=== PATIENT | female | born 1990 | race Caucasian/White ===

== ENCOUNTER 2018-01-03 17:55 | Outpatient (REF) | payer MEDICAID, SELFPAY | END 2018-01-03 18:15 | LOC: LBN 17:55 | PROVIDERS: PCP Family Medicine; Visit Provider Obstetrics & Gynecology Gynecology | DX: R39.9 Unspecified symptoms and signs involving the genitourinary system (principal) | CPT/HCPCS: 87086 ==

== ENCOUNTER 2020-10-25 13:30 | Outpatient (CLI) | payer MEDICAID, SELFPAY ==
--- NOTE | 2020-10-25 11:15 | DI.RAD_ITS ---
Exam(s) XR HAND RT COMPLETE EXAM: XR HAND RT COMPLETE CLINICAL HISTORY: nodules in hand. TECHNIQUE: 2D digital imaging was performed. COMPARISON: No exams were available for comparison FINDINGS: There is no evidence of fracture or dislocation. No radiopaque foreign body. No osseous lesions nor erosions. Incidentally noted is a benign bone island base of the distal phalanx of the 4th-ring fin robert. IMPRESSION: DATA REPOSITORY: RADIATION DOSE DELIVERED:
== END 2020-10-25 13:31 | disposition home or self-care (01) ==
LOC: DIORS 13:30
PROVIDERS: Visit Provider Physician Assistant Surgical
DX: M67.441 Ganglion, right hand (principal)
CPT/HCPCS: 73130

== ENCOUNTER 2020-11-09 08:45 | Day surgery (SDC) | payer MEDICAID, SELFPAY ==
--- NOTE | 2020-11-09 07:50 | PDOC.DSDIS_ITS ---
Documented by User: EMMA Herron 11/09/20 07:52 Discharge Plan Disposition Patient Disposition: HOME Condition: Good Discharge Details Reason For Visit: Ganglion Cyst Excision Attending Provider: Saturnino Gutiérrez Primary Care Provider: Jose Simpson Home Meds and New Rx's Prescriptions: New hydrocodone-acetaminophen 5-325 mg tablet 1 tab PO Q6H PRNQty: 5 RF: 0 acetaminophen [Tylenol Extra Strength] 500 mg tablet 500 mg PO Q6H PRNQty: 15 RF: 0 ibuprofen 600 mg tablet 600 mg PO TID Qty: 15 RF: 0 No Action No Known Home Meds RF: 0 Discharge Instructions Additional Instructions: Discharge Instructions Activity: You may use your fingers for light activity. You should limit any excessive motion or forceful gripping until the sutures have been removed. Dressings: You should keep the initial surgical dressing in place for at least 2 days. You may remove your dressings and get the wound wet after 2 days. You should keep the dressings and the wound clean at all times. You may keep the initial dressing in place until your follow-up but keep the wound covered with light gauze until the sutures are removed. Medications: - You should take Tylenol and Ibuprofen around the clock as prescribed or per injection molding machine offbearer's recommendations. - You have Hydrocodone prescribed for breakthrough pain control. Take only as needed and limit use as much as possible. This may cause constipation. Follow-up: 7-10 days for wound check and suture removal. Referrals: Saturnino Gutiérrez MD [ [facility] STAFF PHYSICIAN] - Activity:: Activity as Tolerated Remove Dressings/Wound Care:: 72 hours Shower/Bathe:: 72 hours Diet:: As Tolerated Discharge Orders Discharge Orders: Discharge Order (Routine); Ordered 11/09/20 Ordered By: Nuria Ribeiro DS: Diagnosis Discharge Diagnosis (1) Ganglion cyst of tendon sheath of right hand: Status: Acute Documented by User: Saturnino Gutiérrez MD 11/09/20 09:35 Discharge Plan Disposition Patient Disposition: HOME Condition: Good Discharge Details Reason For Visit: Ganglion Cyst Excision Attending Provider: Saturnino Gutiérrez Primary Care Provider: Jose Simpson Home Meds and New Rx's Prescriptions: New hydrocodone-acetaminophen 5-325 mg tablet 1 tab PO Q6H PRNQty: 5 RF: 0 acetaminophen [Tylenol Extra Strength] 500 mg tablet 500 mg PO Q6H PRNQty: 15 RF: 0 ibuprofen 600 mg tablet 600 mg PO TID Qty: 15 RF: 0 No Action No Known Home Meds RF: 0 Discharge Instructions Additional Instructions: Discharge Instructions Activity: You may use your fingers for light activity. You should limit any excessive motion or forceful gripping until the sutures have been removed. Dressings: You should keep the initial surgical dressing in place for at least 2 days. You may remove your dressings and get the wound wet after 2 days. You should keep the dressings and the wound clean at all times. You may keep the initial dressing in place until your follow-up but keep the wound covered with light gauze until the sutures are removed. Medications: - You should take Tylenol and Ibuprofen around the clock as prescribed or per injection molding machine offbearer's recommendations. - You have Hydrocodone prescribed for breakthrough pain control. Take only as needed and limit use as much as possible. This may cause constipation. Follow-up: 7-10 days for wound check and suture removal. Referrals: Saturnino Gutiérrez MD [ [facility] STAFF PHYSICIAN] - Activity:: Activity as Tolerated Remove Dressings/Wound Care:: 72 hours Shower/Bathe:: 72 hours Diet:: As Tolerated Discharge Orders Discharge Orders: Discharge Order (Routine); Ordered 11/09/20 Ordered By: Nuria Ribeiro
[2020-11-09 09:07] VITALS: BP 126/78; PULSE 78; RESP 18; TEMP 36.4; O2SAT 100
[2020-11-09 09:36] VITALS: BP 117/71; PULSE 76; RESP 16; TEMP 36.7; O2SAT 96
[2020-11-09] MEDS: Sodium Bicarbonate 50 MEQ/50 ML VIAL (09:43)
--- NOTE | 2020-11-09 12:48 | ROE_ITS ---
Date of service: 11/09/20 Time of Service: 10:01 Operative Note Operative Note DATE OF PROCEDURE: 11/09/20 PRE-OP DIAGNOSIS: Right Ring Finger Ganglion Cyst POST-OP DIAGNOSIS: same PROCEDURE: Excision of Tendon Sheath Ganglion Cyst - Right Ring Finger SURGEON: Saturnino Gutiérrez ANESTHESIA TYPE: Local By Surgeon Refer to Anesthesia Record ESTIMATED BLOOD LOSS: 0 PATHOLOGY: none sent TOURNIQUET TIME: 0 COMPLICATIONS: None Patient was transported to: same day Patient's condition: stable Indications: I have seen Karen in clinic for symptoms of a ganglion cyst of the flexor tendon sheath of the right ring finger. The pain limited function. The diagnosis of tendon sheath ganglion cyst was evident. The symptoms had not responded to conservative measures. I discussed excision with the patient. I reviewed the risks of the procedure to include, but not limited to, bleeding, infection, pain, stiffness, damage to nerves or vessels, recurrence. Despite these risks, the patient elected to proceed. Findings: There was a ganglion cyst arising from the flexor tendon sheath just distal to the A1 eleuterio. It measured approximately 12mm (Proximal-Distal) x 6mm (Med-Lat). . Procedure Description: Karen was greeted in the preoperative holding area where the correct side was identified and marked. The consent was reviewed with the patient and signed. All questions were answered. She was taken back to the operating room. The patient was placed into the supine position on the operating room table with the right arm on an arm board. All bony prominences were well padded. No prophylactic antibiotics were admin istered since this was a clean, elective hand surgical case. The right arm was then prepped with Chloraprep and draped in a standard fashion with stockinette and extremity drape. A timeout to confirm correct identity, side and site, procedure, allergies, anesthesia, and medical concerns was performed. The surgical site was marked as a longitudinal incision directly over the cyst of the ring finger. This was confirmed with palpation. This area was then anesthetized with 1% Lidocaine. The patient tolerated this well and once the anesthetic had setup, the procedure began. A longitudinal incision was made through skin only, approximately 1cm. The deep tissues were dissected bluntly. The soft tissue including neurovascular structures were retracted medially and laterally. A small veil of palmar fascia was released to exposed the ganglion cyst. It was normal in appearance with a thin, clear wall. Once exposed it measured approximately 12x8mm. The periphery of the cyst was then dissected such that was free. The cyst was then deflated and normal thickened cystic fluid was removed. The cyst itself was transected off of the flexor tendon sheath leaving a small hole in the underlying flexor tendon sheath. The wound was then irrigated and the skin was closed with a 4-0 Nylon. This was dressed with gauze and a Conform dressing. The patient tolerated the procedure well and was returned to the Same Day Surgery area in a stable condition suffering no known complication.
== END 2020-11-09 10:25 | disposition home or self-care (01) ==
LOC: SUR 08:46
PROVIDERS: PCP Family Medicine; Visit Provider Student in an Organized Health Care Education/Training Program
PROC: (CPT 26160; principal; 2020-11-09 11:15)
DX: M67.441 Ganglion, right hand (principal)
CPT/HCPCS: 26160

== ENCOUNTER 2023-06-26 16:27 | Outpatient (REF) | payer MEDICAID, SELFPAY | END 2023-06-26 16:28 | disposition home or self-care (01) | LOC: LBN 16:27 | PROVIDERS: Visit Provider Advanced Practice Midwife | DX: N90.7 Vulvar cyst (principal); N75.0 Cyst of Bartholin's gland | CPT/HCPCS: 87480; 87510; 87660 ==

== ENCOUNTER 2023-09-26 15:53 | Outpatient (REF) | payer MEDICAID, SELFPAY ==
--- NOTE | 2023-09-26 15:45 | PAPFT_PTH ---
PATIENT: Karen Douglas LOC: [facility] U#:[id number] AGE/SX: 33/F ROOM: RE09/26/[address]: Alexa Prajapati NP : 1990 BED: DIS: 09/26/2023 SPEC #: [id number] RECD: 09/26/23 17:33 STATUS: ARNALDO REQ #: [id number] KENNETH: 09/26/23 15:[address]: Victorina FLORES,Alexa DEPT: [facility] Cytology RECD BY: Reina Hawkins ENTERED: 09/26/23 17:34 SP TYPE: PAPFT OTHR DR: Unknown,Unknown Tissues: 1 - CX/ENDOCX FOR PAP SMEARS Procedures: PAP THIN PREP/[facility] Screening HPV DNA PROBE Comments: [id number] (HPV 16 & 18/45)
== END 2023-09-26 15:54 | disposition home or self-care (01) ==
LOC: LBN 15:53
PROVIDERS: Visit Provider Nurse Practitioner Women's Health
DX: Z12.4 Encounter for screening for malignant neoplasm of cervix (principal); Z01.419 Encounter for gynecological examination (general) (routine) without abnormal findings
CPT/HCPCS: 88142; 87624

== ENCOUNTER 2024-12-03 01:11 | Outpatient (CLI) | payer MEDICAID, SELFPAY ==
--- NOTE | 2024-12-03 08:45 | DI.US_ITS ---
Exam(s) US PELVIS TRANSVAGINAL EXAM: US PELVIS TRANSVAGINAL CLINICAL HISTORY: R pelvic pain,R10.2. TECHNIQUE: Transabdominal and transvaginal pelvic ultrasound was performed using standard protocol. COMPARISON: US PELVIS TRANSVAG from 03/05/2017 FINDINGS: UTERUS: Position: Anteverted. Size: 7.5 long by 2.9 AP by 5.0 transverse cm Endometrium: 0.7 cm. Normal for patient's menstrual status. Myometrium: Unremarkable. Cervix: Unremarkable. OVARIES: Right: 3.1 x 1.5 x 2.7 cm Cyst or mass: No suspicious cystic or solid masses. Left: 3.2 x 1.6 x 2.8 cm Cyst or mass: No suspicious cystic or solid masses. DOPPLER: Color: Symmetric and uniform flow to both ovaries. CUL-DE-SAC: Free fluid: None. Other: None. IMPRESSION: 1. Normal-appearing uterus with endometrial stripe within normal limits. 2. Unremarkable bilateral ovaries. DATA REPOSITORY:
== END 2024-12-03 01:31 ==
LOC: DI 01:11
PROVIDERS: Visit Provider Nurse Practitioner Women's Health
DX: R10.2 Pelvic and perineal pain (principal)
CPT/HCPCS: 76830; 76856

== ENCOUNTER 2024-12-03 02:24 | Outpatient (CLI) | payer MEDICAID, SELFPAY ==
[2024-12-03 08:48] LABS: HCT 37.9 % (36.0-46.0); HGB 12.8 g/dL (11.2-15.7); MCH 30.3 pg (27.0-33.0); MCHC 33.8 % (32.0-36.0); MCV 90 fL (80-95); MPV 10.0 fL (8.0-11.0); Platelet Count 219 10^3/uL (130-400); RBC 4.23 10^6/uL (3.93-5.22); RDW 11.9 % (11.7-14.6); RDW-SD 38.6 fL; WBC 6.68 10^3/uL (4.4-10.8)
[2024-12-03 10:16] LABS: ALT 18 U/L (14-59); AST 11 U/L (15-37); Albumin 4.0 g/dL (3.4-5.0); Alkaline Phosphatase 68 U/L (46-116); Anion Gap 5.5 mmol/L (3-11); BUN 11 mg/dL (7-18); Bilirubin, Total 0.3 mg/dL (0.2-1.0); CO2 29.5 mmol/L (21.0-32.0); Calcium 8.8 mg/dL (8.5-10.1); Chloride 105 mmol/L (98-107); Estimated GFR 98.48 (mL/min/1.73m2); Glucose 109 mg/dL (74-106); Potassium 3.6 mmol/L (3.5-5.1); Sodium 140 mmol/L (136-145); TSH (W/Ref FT4) 2.22 uIU/mL (0.36-3.74); Total Protein 6.9 g/dL (6.4-8.2)
== END 2024-12-03 02:25 | disposition home or self-care (01) ==
LOC: LBO 02:24
PROVIDERS: Visit Provider Nurse Practitioner Women's Health
DX: R53.83 Other fatigue (principal); Z01.419 Encounter for gynecological examination (general) (routine) without abnormal findings
CPT/HCPCS: 36415; 80053; 85027; 84443